=== PATIENT | male | born 1990 | race Caucasian/White ===

== ENCOUNTER → 2018-07-16 | Outpatient (CLI) | payer MEDICARE, OTHER ==
--- NOTE | 2018-07-16 15:35 | CARD ---
MR#: [id number] Date of Study: 07/16/2018 Ordering Physician: PATSY IBRAHIM, Referring Physician: PATSY IBRAHIM, Tech: Arminda Eastman CS APPROVED REPORT INDICATION Chest Pain PROCEDURE The patient underwent an Exercise Stress Test using the Reinaldo Protocol. Blood pressure, heart rate, a nd EKG were monitored. An Echocardiogram was performed by equipment maintenance technician in four stages in quad fashion. At peak stress four se lected images were obtained and placed side by side with resting images for comparison. STRESS ECHO FINDINGS The resting Echocardiogram showed normal left ventricular systolic contractility with an estimated Ej ection Fraction of about 60 %. The Resting Echocardiogram showed normal augmentation of myocardial wall segments using a 16 segment model. The Stress Echocardiogram showed normal augmentation of myocardial wall segments using a 16 segment m el. The Stress Echocardiogram left ventricular systolic contractility has an estimated Ejection Fraction of about 75%. Test Type: Exercise Stress Nurse/Tech: Funmilayo Fleming RN Test Indications: Chest Pain Cardiac History and Allergies: Family history Medications: see EMR Medical History: see EMR Resting ECG: SR Resting Heart Rate: 65 bpm Resting Blood Pressure: 131/57mmHg Pretest Chest Pain: No chest pain Nurse/Tech Notes S1,S2 and lungs are clear to auscultation. Stress Symptoms Fatigue POST EXERCISE Reason for Termination: Reached target heart rate Target HR: Yes Max HR: 167 bpm 100% of Maximum Predicted HR: 162 bpm Exercise duration: 12:58 min:sec, 4 Stage Exercise capacity: 12.8METs Max Blood Pressure: 159/59mmHg Blood Pressure response to exercise: Normal blood pressure response during stress. Heart Rate response to exercise: WNL Chest Pain: No. Arrhythmia: No. ST Change: Yes. very slight increase in STduring exercise which returned to baseline by end of study. INTERPRETATION Stress EKG Conclusion: Baseline EKG showed sinus rhythm. No ischemic changes at peak stress. No arr hythmias. <Conclusion> Treadmill exercise stress echocardiogram did not show any evidence of ischemia or infarct. Normal left ventricle systolic function with ejection fraction estimated at 60%. Patient had good activity tolerance. Low risk for cardiac events. Signed by : Tremaine Black, Electronically Approved : 07/16/2018 15:34:34
== END | disposition home or self-care (01) ==
LOC: ECHO 12:50
PROVIDERS: ATTEND Internal Medicine Cardiovascular Disease
DX: R07.89 Other chest pain (principal)
CPT/HCPCS: 93017; 93350

== ENCOUNTER → 2018-09-24 | Outpatient (CLI) | payer MEDICARE, OTHER ==
[~2018-09-24] MED LIST: ALBU2.5V8 IH; CLON0.5T PO; IOHEXOL 300 MG/ML 100ML VIAL. IV ONE; LAMO200T3 PO
--- NOTE | 2018-09-24 15:32 | KCIC ---
MRI of the brain without contrast 09/24/2018 Clinical History: Vertigo and near syncope. Retro-orbital pain. Technique: Unenhanced T1-weighted sagittal and axial, T2-weighted axial and coronal and FLAIR, coronal and diffusion-weighted axial images of the brain were obtained. Findings: Comparison is made to a CT scan of the head dated 06/17/2018. Some of the images are degraded by patient motion. The ventricles are within normal limits in size and configuration. No area of significant abnormal signal intensity is seen involving brain parenchyma. A 4 cm arachnoid cyst is seen posterior to the midline cerebellum. There is no significant mass effect. There is no MRI evidence of acute ischemia/infarction. The orbits are within normal limits. Mild mucosal thickening in seen scattered throughout the paranasal sinuses. There are minimal bilateral mastoid effusions. Normal flow voids are seen within the major vascular structures surrounding the brain parenchyma. Impression: No acute parenchymal abnormality is seen. Electronically signed by: Loy Morataya MD (09/24/2018 3:29 PM) [id number]
--- NOTE | 2018-09-24 16:47 | KCIC ---
Examination: CT angiography head and neck with IV contrast and CT head without contrast HISTORY: Vertigo, near syncope, retroorbital pain COMPARISON: CT head from 06/17/2018 TECHNIQUE: Axial CT images of the head was performed without contrast. Axial CT angiographic images of the head and neck were performed with IV contrast. Coronal and sagittal 3-D MIP reformats are performed Exposure: One or more of the following individualized dose reduction techniques were utilized for this examination: 1. Automated exposure control 2. Adjustment of the mA and/or kV according to patient size 3. Use of iterative reconstruction technique Stenosis calculations for CT, MR, and conventional angiography are based upon measurements of the distal ICA diameter in accordance with the NASCET methodology. Stenosis calculations for carotid ultrasound studies are derived from validated velocity criteria which are known to correlate with the NASCET methodology. FINDINGS: The evaluation of the origin of the great vessels from the arch of the aorta is somewhat limited due to streak artifact. Grossly the visualized proximal common carotid arteries, internal carotid arteries are patent. The origin of the vertebral arteries is limited due to streak artifact. The bilateral vertebral arteries in the neck are patent. The basilar artery is patent. The bilateral middle cerebral arteries, anterior cerebral arteries, posterior cerebral arteries. There is no evidence of midline shift. There is no acute intracranial bleed or extra-axial fluid collection identified. The visualized lateral ventricles, third ventricle, fourth ventricle appropriate for age. The basal cisterns are uneffaced The paranasal sinuses are clear. IMPRESSION: 1. No acute intracranial findings. 2. No evidence of occlusion or obvious aneurysmal change identified. Electronically signed by: Orlando Merino MD (09/24/2018 4:45 PM) [place] [id number]
== END | disposition home or self-care (01) ==
LOC: KCIC MRI 10:04
PROVIDERS: ATTEND Psychiatry & Neurology Neurology with Special Qualifications in Child Neurology
DX: H74.8X3 Other specified disorders of middle ear and mastoid, bilateral (principal); G93.0 Cerebral cysts
CPT/HCPCS: 70496; 70498; 70551; Q9967